=== PATIENT | female | born 1970 | race Asian ===

== ENCOUNTER 2017-10-15 12:02 | Emergency (ER) | payer SELFPAY ==
[~2017-10-15] VITALS: Ht 172.7 cm; Wt 83.5 kg
[2017-10-15 13:00] VITALS: Ht 172.7 cm; Wt 83.5 kg
[2017-10-15 16:07] VITALS: BP 121/69
== END 2017-10-15 16:07 | disposition home or self-care (01) ==
LOC: ED 12:02
DX: S93.601A Unspecified sprain of right foot, initial encounter (principal); X50.1XXA Overexertion from prolonged static or awkward postures, initial encounter; Y99.8 Other external cause status; Y93.73 Activity, racquet and hand sports; Y92.39 Other specified sports and athletic area as the place of occurrence of the external cause